=== PATIENT | male | born 1985 ===

== ENCOUNTER 2024-08-04 20:14 | Emergency (ER) | payer MEDICARE ==
[~2024-08-04] VITALS: Ht 182.9 cm; Wt 139.3 kg
[~2024-08-04 20:14] MED LIST: hydrALAZine HCL 10 MG TABLET PO ONE
[2024-08-04 21:17] LABS: BASOPHILS # (AUTO) 0.07 K/uL (0.00-0.20); BASOPHILS % (AUTO) 0.6 % (0.0-5.0); EOSINOPHILS # (AUTO) 0.43 K/uL (0.00-0.70); IMMATURE GRANULOCYTE ABSOLUTE 0.05 K/uL (0-1); LYMPHOCYTES # (AUTO) 2.2 K/uL (1.0-4.8); MEAN CORPUSCULAR VOLUME 85.4 fL (79-99); MONOCYTES # (AUTO) 0.7 K/uL (0.1-1.0); MONOCYTES % (AUTO) 6.1 % (3.0-13.0); NEUTROPHILS # (AUTO) 7.5 K/uL (1.8-7.7); NEUTROPHILS % (AUTO) 68.8 % (40.0-77.0); PLATELET COUNT (AUTO) 368 K/uL (130-400); RED BLOOD CELL COUNT(AUTO) 5.62 MIL/uL (4.50-6.20); RED CELL DISTRIBUTION WIDTH 13.9 % (11.0-15.5); WHITE BLOOD COUNT (AUTO) 10.9 K/uL (4.8-10.8)
--- NOTE | 2024-08-04 21:19 | EKG ---
[facility] Test Date: 2024-08-04 Test Time: 21:12:19 Pat Name: KATHERINE RITTER Department: ED Room: Gender: M Hospitality Director: [facility] : 1985 Requested By: KEYONA MINAYA Order Number: [id number] Reading MD: Valeria Carty Measurements Intervals [place] Rate: 99 P: 48 MS: 144 QRS: -51 QRSD: 98 T: 85 QT: 360 QTc: 462 Interpretive Statements Sinus rhythm Probable left atrial enlargement Left anterior fascicular block No previous ECG available for comparison Electronically Signed On 08-05-2024 14:35:37 [employer] by Valeria Carty Please click the below link to view image of tracing.
[2024-08-04 21:27] LABS: CREATININE 1.4 mg/dL (0.5-1.3); POTASSIUM 3.7 mmol/L (3.5-5.1)
--- NOTE | 2024-08-04 21:35 | HMCIMG ---
PORTABLE CHEST RADIOGRAPH INDICATION: htn COMPARISON: None FINDINGS: Heart size is normal. The pulmonary vascularity and lauro appear normal. No abnormal pulmonary parenchymal opacity or consolidation identified. No significant pleural effusion noted. No pneumothorax detected. IMPRESSION: No radiographic evidence for any acute cardiopulmonary process.
[2024-08-04 21:36] LABS: B-TYPE NATRIURETIC PEPTIDE 16 pg/mL (0-100)
--- NOTE | 2024-08-04 21:51 | ERN ---
ED Note History of Present Illness Stated Complaint: HBP Chief Complaint: Hypertension Time Seen by MD: 20:30 Time Seen by Midlevel: 20:33 Dictation: 38-year-old male coming in from PCP's office for high blood pressure. Patient will states he went for a regular follow up and to refill on his losartan . They took his blood pressure while at the PCP's was elevated and they sent him to the ER. Patient denies any chest pain, chest discomfort, shortness of breath, headache, nausea, vomiting, dizziness or blurry vision. Allergies: Coded Allergies: No Known Drug Allergies (Unverified Allergy, Unknown, 08/04/24) Home Meds Active Scripts Losartan Potassium (Losartan Potassium) 100 Mg Tablet, 1 TAB PO BID for 7 Days, #7 TAB 0 Refills Prov:MATT BENZ 08/05/24 Past Medical History Past Medical History: Diabetes-Type II, High Cholesterol, Hypertension Surgical History: None Review of System Dictation ROS stromal Review of Systems: was completed Initial Vital Sign VS Vital Signs Date Time Temp Pulse Resp B/P (MAP) Pulse Ox O2 Delivery O2 Flow Rate FiO2 08/04/24 20:34 98.4 101 20 207/121 97 Room Air 08/04/24 22:12 0 21 Physical Exam Dictation General: awake, alert, NAD Head/Face: Normocephalic, atraumatic Eyes: PERRL, EOMI, vision at baseline ENT: oral cavity clear, TMs clear, no signs of infection Neck: Trachea midline, supple, no nuchal rigidity Cardiovascular: RRR, normal S1/S2 Respiratory: CTAB, no respiratory distress, No rales or wheezes Abdomen: Soft, non-tender, non-distended, normal bowel sounds, no guarding or rebound. Skin: Warm, dry, normal turgor, no rash MS/Extremity: Pulses equal, no cyanosis, neurovascular intact, FROM Neuro: COAx4, GCS 15, strength 5/5, CN 2-12 intact, normal cerebellar exam, normal gait, Psych: Normal behavior, mood, and affect normal Results (Laboratory/Radiology) Laboratory/Radiology Laboratory Tests Test 08/04/24 21:10 08/04/24 22:32 White Blood Count 10.9 K/uL (4.8-10.8) H Red Blood Count 5.62 MIL/uL (4.50-6.20) Hemoglobin 16.3 g/dL (14.0-18.0) Hematocrit 48.0 % (42-54) Mean Corpuscular Volume 85.4 fL (79-99) Mean Corpuscular Hemoglobin 29.0 pg (27.0-33.0) Mean Corpuscular Hemoglobin Concent 34.0 g/dL (32.0-36.0) Red Cell Distribution Width 13.9 % (11.0-15.5) Platelet Count 368 K/uL (130-400) Mean Platelet Volume 9.6 fL (7.5-10.5) Immature Granulocyte % (Auto) 0.5 % (0-1) Neutrophils (%) (Auto) 68.8 % (40.0-77.0) Lymphocytes (%) (Auto) 20.0 % (21.0-51.0) L Monocytes (%) (Auto) 6.1 % (3.0-13.0) Eosinophils (%) (Auto) 4.0 % (0.0-8.0) Basophils (%) (Auto) 0.6 % (0.0-5.0) Neutrophils # (Auto) 7.5 K/uL (1.8-7.7) Lymphocytes # (Auto) 2.2 K/uL (1.0-4.8) Monocytes # (Auto) 0.7 K/uL (0.1-1.0) Eosinophils # (Auto) 0.43 K/uL (0.00-0.70) Basophils # (Auto) 0.07 K/uL (0.00-0.20) Absolute Immature Granulocyte (auto 0.05 K/uL (0-1) Nucleated Red Blood Cells 0.0 % (0.0-0.19) Sodium Level 137 mmol/L (136-145) Potassium Level 3.7 mmol/L (3.5-5.1) Chloride Level 101 mmol/L (101-111) Carbon Dioxide Level 30 mmol/L (21-32) Blood Urea Nitrogen 14 mg/dL (7-18) Creatinine 1.4 mg/dL (0.5-1.3) H Glomerular Filtration Rate Calc 66 mL/min (>90) Random Glucose 139 mg/dL (70-105) H Total Calcium 9.0 mg/dL (8.5-10.1) Troponin I High Sensitivity 53 ng/L (4-75) 47 ng/L (4-75) B-Type Natriuretic Peptide 16 pg/mL (0-100) Labs Reviewed?: Yes EKG Comment: Date:08/04/24 Time:2111 Ventricular rate:99 GA interval:144 QRS duration:-51 QT/QTc:360/462 EKG interpretation: Sinus rhythm, probable left atrial enlargement, left anterior fascicular block Reviewed by ED Attending ED Course ED Course Orders Procedure Category Date Status Time Cbc With Differential LAB 08/04/24 Complete 21:00 Basic Metabolic Panel LAB 08/04/24 Complete 21:00 Troponin I High LAB 08/04/24 Complete Sensitivity 21:00 B-Type Natriuretic LAB 08/04/24 Complete Peptide 21:00 Chest 1vw RAD 08/04/24 Resulted 21:00 12 Lead Ekg Tracing- EKG 08/04/24 Complete Technical 21:00 Labetalol 20mg Syg PHA 08/04/24 Complete (Trandate 20mg Syg) 21:04 Troponin I High LAB 08/04/24 Complete Sensitivity 22:10 Hydralazine 10mg Tab PHA 08/04/24 Complete (Apresoline 10mg Ta 00:00 Hydralazine 10mg Tab PHA 08/05/24 Complete (Apresoline 10mg Ta 00:10 Current Medications Medications (Trade) Dose Ordered Sig/Risa Route PRN Reason Start Time Stop Time Status Last Admin Dose Admin Hydralazine HCl (APRESOLine 10MG TAB) 10 mg ONCE ONCE PO 08/04/24 00:00 08/04/24 23:44 DC Hydralazine HCl (APRESOLine 10MG TAB) 10 mg ONCE ONCE PO 08/05/24 00:10 08/05/24 00:11 DC 08/05/24 00:05 Labetalol HCl (TRANdate 20MG SYG) 10 mg ONCE STAT IV 08/04/24 21:04 08/04/24 21:08 DC Vital Signs Date Time Temp Pulse Resp B/P (MAP) Pulse Ox O2 Delivery O2 Flow Rate FiO2 08/05/24 00:10 98.6 79 17 154/92 98 Room Air* 0 21 08/05/24 00:05 98.6 82 20 160/107 97 Room Air* 0 08/04/24 22:12 98.4 92 20 157/98 97 Room Air* 0 21 08/04/24 20:34 98.4 101 20 207/121 97 Room Air Medical Decision Making MDM MDM: Differential diagnosis: Elevated blood pressure, hypertensive urgency, hypertensive emergency Rationale: 38-year-old male coming in from PCP's office for high blood pressure. Patient will states he went for a regular follow up and to refill on his losartan . They took his blood pressure while at the PCP's was elevated and they sent him to the ER. Patient denies any chest pain, chest discomfort, shortness of breath, headache, nausea, vomiting, dizziness or blurry vision. Per physical examination patient is in no acute distress, nonlabored breathing. Labs obtained are within normal limits, initial troponin 53, 2nd troponin 47. Initial blood pressure of 207/121, during ED course blood pressure improved however prior to discharge blood pressure increased to 160/107. Hydralazine administered in the ED and blood pressure 154/92. Patient's mother expressed concern for patient's health, patient and mother were educated on findings, diagnosis and all questions were answered. The patient's mother requested to be seen by physician therefore Dr. Ramirez evaluated patient, and recommended prescribing patient losartan 100 BID. Patient was advised to follow up with PCP. Return to the emergency department if any worsening symptoms. Patient verbalized understanding. Patient stable for discharge. There are no social concerns with this patient. I independently interpreted the test that were performed, results were reviewed by me and considered findings on radiology if ordered. Medical management and examination interpretation discussions were had by me with other qualified healthcare professionals as indicated for the patient's care. DX & DISP Disposition: Discharge Departure Impression: Primary Impression: Elevated blood pressure reading Condition: Stable Scripts Losartan Potassium (Losartan Potassium) 100 Mg Tablet 1 TAB PO BID for 7 Days, #7 TAB 0 Refills Prov: MATT BENZ 08/05/24 Additional Instructions: Discharge home. Rest. Follow up with primary care in 24 hours. Return to the ER for any acute changes or worsening symptoms. If any medications were prescribed take as directed. Okay to continue home medications unless otherwise discussed during your visit in the emergency room today. Patient was also advised to follow-up with primary care physician in 1 to 2 days for continued monitoring. Referrals: SELF,REFERRAL (PCP) I performed the substantive portion of the visit. I have reviewed and personally made and approve the management plan that is documented in the notes by myself or the MARIANO. I acknowledge full responsibility for the patient's management plan. KEYONA MINAYA NP Aug 04, 2024 21:50 MATT BENZ Aug 04, 2024 23:05
[2024-08-04] MEDS: LAbetaLOL 20MG SYG IV STA (22:26)
[2024-08-05] MEDS: hydrALAZine HCL 10 MG TABLET PO ONE (00:05)
[2024-08-05] MEDS ORDERED: LOSA100T59 PO (00:06)
[2024-08-05 00:10] VITALS: BP 154/92; PULSE 79; RESP 17; TEMP 98.6; O2SAT 98
== END 2024-08-05 00:12 | disposition home or self-care (01) ==
LOC: EDH 20:14
DX: I10 Essential (primary) hypertension (principal); E11.9 Type 2 diabetes mellitus without complications; E78.00 Pure hypercholesterolemia, unspecified; Z79.899 Other long term (current) drug therapy
CPT/HCPCS: 36415; 71045; 80048; 83880; 84484; 85025; 93005; 99285